=== PATIENT | female | born 1975 | race African-American/Black ===

== ENCOUNTER 2025-07-23 17:42 | Emergency (ER) | payer MEDICAID ==
[~2025-07-23] VITALS: Ht 170.2 cm; Wt 100.0 kg
[2025-07-23 17:50] VITALS: O2SAT 100
[2025-07-23 18:06] VITALS: TEMP 37.1
[2025-07-23] MEDS: METHYLPREDNISOLONE SOD SUCC 125MG/2ML (ACT-O-VIAL) IV ONE (18:16)
[2025-07-23] MEDS: FAMOTIDINE 20MG/2ML VIAL IV ONE (18:16)
[2025-07-23] MEDS: DIPHENHYDRAMINE 50MG/ML VIAL IV ONE (18:16)
[2025-07-23] MEDS ORDERED: EPIN0.3P3 IM (19:51)
[2025-07-23] MEDS ORDERED: P50 MT (19:51)
[2025-07-23] MEDS ORDERED: DIPH50CA42 MT (19:52)
[2025-07-23] MEDS ORDERED: FAMO-287 MT (19:52)
[2025-07-23 20:11] VITALS: BP 143/77; PULSE 100; RESP 14; O2SAT 100
== END 2025-07-23 20:13 | disposition home or self-care (01) ==
LOC: ER 17:42
DX: T78.2XXA Anaphylactic shock, unspecified, initial encounter (principal); E78.00 Pure hypercholesterolemia, unspecified; I10 Essential (primary) hypertension; J45.909 Unspecified asthma, uncomplicated; Z88.1 Allergy status to other antibiotic agents; X58.XXXA Exposure to other specified factors, initial encounter; Y93.89 Activity, other specified; Y92.89 Other specified places as the place of occurrence of the external cause; Y99.8 Other external cause status
CPT/HCPCS: 99284; 96374; 96375; J2919; J1200; J1308

== ENCOUNTER 2025-09-26 12:02 | Emergency (ER) | payer MEDICAID ==
[~2025-09-26] VITALS: Ht 165.1 cm; Wt 69.0 kg
[~2025-09-26 12:02] MED LIST: DIPH50CA42 MT; EPIN0.3P3 IM; FAMO-287 MT; P50 MT
[2025-09-26 12:05] VITALS: O2SAT 99
[2025-09-26] MEDS: SODIUM CHLORIDE 0.9% 1,000 ML IV ONE (13:22)
[2025-09-26 13:31] LABS: BASOPHILS % 1.0 % (0.0-2.0); EOSINOPHILS % 2.0 % (0.0-5.0); HEMATOCRIT. 41.1 % (36.0-48.0); HEMOGLOBIN. 13.4 g/dL (12.0-16.0); LYMPHOCYTES % 36.7 % (20.0-50.0); MEAN PLATELET VOLUME 8.3 fl (7.4-10.4); MONOCYTES % 6.5 % (2.0-8.0); NEUTROPHILS % 53.8 % (40.0-76.0); PLATELET 229 x1000/uL (130-400); RED BLOOD CELL COUNT 4.61 mill/uL (4.2-5.4); RED CELL DISTRIBUTION WIDTH 15.5 % (11.6-14.6)
[2025-09-26 14:04] LABS: CREATININE 0.9 mg/dL (0.6-1.0); UREA NITROGEN BLOOD 11 mg/dL (9-23)
[2025-09-26 14:06] LABS: ASPARTATE AMINOTRANSFERASE 39 IU/L (<34); BILIRUBIN DIRECT 0.2 mg/dL (<=3.0); TROPONIN I HIGH SENSITIVITY < 4 ng/L (3.0-34)
[2025-09-26 14:07] LABS: BILIRUBIN TOTAL 1.1 mg/dL (0.1-1.0); PROTEIN TOTAL 7.3 g/dL (6.0-8.3)
[2025-09-26 15:00] LABS: INFLUENZA TYPE A Presumptive Negative (Pres. Neg.)
[2025-09-26 15:01] LABS: INFLUENZA TYPE B Presumptive Negative (Pres. Neg.)
[2025-09-26] MEDS ORDERED: PSEU120T56 MT (15:06)
[2025-09-26] MEDS ORDERED: P20 PO (15:06)
[2025-09-26 15:21] VITALS: BP 145/77; PULSE 82; RESP 16; TEMP 36.6; O2SAT 99
== END 2025-09-26 15:23 | disposition home or self-care (01) ==
LOC: ER 12:02
DX: R06.02 Shortness of breath (principal); R05.9 Cough, unspecified; E78.00 Pure hypercholesterolemia, unspecified; I10 Essential (primary) hypertension; J45.909 Unspecified asthma, uncomplicated; Z79.52 Long term (current) use of systemic steroids; Z88.1 Allergy status to other antibiotic agents; Z90.710 Acquired absence of both cervix and uterus; Z20.822 Contact with and (suspected) exposure to COVID-19; W19.XXXA Unspecified fall, initial encounter; Y93.89 Activity, other specified; Y92.89 Other specified places as the place of occurrence of the external cause; Y99.8 Other external cause status
CPT/HCPCS: 99284; 71045; 87426; 80076; 80048; 83880; 83735; 85025; 84484; 87804 ×2; 36415; J7030